=== PATIENT | female | born 2000 | race Two or more races ===

== ENCOUNTER 2023-12-24 16:06 | Emergency (ER) | payer OTHER ==
[2023-12-24 16:30] LABS: BASOPHILS # (AUTO) 0.1 10^3/uL (0.0-0.1); BASOPHILS % (AUTO) 0.7 %; EOSINOPHILS # (AUTO) 0.1 10^3/uL (0.0-0.7); EOSINOPHILS % (AUTO) 0.5 %; HCT - HEMATOCRIT 42.1 % (37.0-47.0); HGB - HEMOGLOBIN 13.5 g/dL (12.0-16.0); LYMPHOCYTES # (AUTO) 1.3 10^3/uL (1.5-3.5); LYMPHOCYTES % (AUTO) 14.5 %; MEAN CORPUSCULAR HGB CONC 32.1 g/dL (32.0-36.0); MEAN CORPUSCULAR VOLUME 90.5 fL (81.0-99.0); MEAN PLATELET VOLUME 10.8 fL (7.9-10.8); MONOCYTES # (AUTO) 0.6 10^3/uL (0.0-1.0); MONOCYTES % (AUTO) 6.1 %; NEUTROPHILS # (AUTO) 7.2 10^3/uL (1.5-6.6); NEUTROPHILS % (AUTO) 77.9 %; PLT - PLATELET COUNT 285 10^3/uL (130-450); RED BLOOD COUNT 4.65 10^6/uL (4.20-5.40); WHITE BLOOD COUNT 9.2 x10^3/uL (4.8-10.8)
[2023-12-24 16:44] LABS: ALBUMIN 4.9 g/dL (3.2-5.5); ALBUMIN/GLOBULIN RATIO 1.4 (1.0-2.2); BILIRUBIN,TOTAL 0.6 mg/dL (0.2-1.0); CALCIUM 9.8 mg/dL (8.5-10.3); CREATININE 0.7 mg/dL (0.6-1.3); POTASSIUM 3.4 mmol/L (3.5-4.5); TOTAL PROTEIN 8.4 g/dL (6.4-8.9)
[2023-12-24 16:54] LABS: BILIRUBIN,URINE SMALL (NEGATIVE); GLUCOSE, URINE (UA) NEGATIVE (NEGATIVE); KETONES,URINE (UA) >=80 mg/dL (NEGATIVE); LEUKOCYTE ESTERASE, URINE NEGATIVE (NEGATIVE); NITRITE,URINE NEGATIVE (NEGATIVE); OCCULT BLOOD,URINE NEGATIVE (NEGATIVE); PROTEIN,URINE TRACE mg/dL (NEGATIVE); UROBILINOGEN,URINE 0.2 (NORMAL) E.U./dL (NORMAL)
[2023-12-24 16:56] LABS: CLARITY,URINE CLEAR (CLEAR); HCG UR QUAL NEGATIVE
--- NOTE | 2023-12-24 17:32 | ED Physician Documentation ---
History of Present Illness - Stated complaint Stated Complaint: VOMITING - Chief complaint Chief Complaint: Abd Pain - History obtained from History obtained from: Patient - Additonal information Additional information: 23-year-old female presented with nausea and vomiting since yesterday. The patient states she has a history of hyperemesis gravidarum during her which she delivered 8 months ago, and has occasional bouts of nausea vomiting since then. She had multiple episodes of nausea and vomiting, nonbloody, nonbilious, and a was not able to tolerate any p.o. thus came into the ER today. She mainly was concerned that she did not have something that she may accidentally transmit to her 8-month-old baby. Patient states she has had a lot of stress recently, has not been getting much rest within it young child at home, and does not eat or drink on a regular basis and sometimes gets behind on p.o. intake. She is also noting low back pain though this is not a new issue, she states she has had low back pain since she had her epidural during normal spontaneous vaginal delivery 8 months ago. She has had fairly consistent pain since then, just right of midline, nonradiating, no saddle anesthesia or lower extremity weakness or numbness. She has not followed up with her PCP for this issue and has not taken any medication for it. She is not here for the back pain today, and is here mainly for the nausea and vomiting. She states she has not had a fever, denies any chest pain, no cough or URI symptoms, no sore throat,No abdominal pain, no diarrhea, no dysuria urgency or frequency, no vaginal discharge. Patient declines IV today, declines any medications. Review of Systems Constitutional: reports: Reviewed and negative Eyes: reports: Reviewed and negative Ears: reports: Reviewed and negative Nose: reports: Reviewed and negative Throat: reports: Reviewed and negative Cardiac: reports: Reviewed and negative Respiratory: reports: Reviewed and negative GI: reports: Nausea, Vomiting. 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 : None HEENT: None Psych: None Musculoskeletal: Chronic back pain Derm: None - Past Surgical History Past Surgical History: No - Present Medications Home Medications: Ambulatory Orders Medication Instructions Recorded Confirmed Ondansetron Odt [Zofran] 4 mg TL Q6H PRN #10 tablet 12/24/23 - Allergies Allergies/Adverse Reactions: Allergies Allergy/AdvReac Type Severity Reaction Status Date / Time No Known Drug Allergies Allergy Verified 12/24/23 16:08 - Social History Does the pt smoke?: No Smoking Status: Never smoker Does the pt drink ETOH?: No Does the pt have substance abuse?: Yes Substance Use and Type: Marijuana - Immunizations Immunizations are current?: Yes - POLST Patient has POLST: No PD ED PE NORMAL - Vitals Vital signs reviewed: Yes - General General: Alert and oriented X 3, No acute distress, Well developed/nourished - HEENT HEENT: Atraumatic, Moist mucous membranes, Pharynx benign - Neck Neck: Supple, no meningeal sign, No adenopathy - Cardiac Cardiac: RRR, No murmur - Respiratory Respiratory: No respiratory distress - Abdomen Abdomen: Normal bowel sounds, Soft, Non tender, Non distended - Back Back: No CVA TTP, No spinal TTP, Other (Med at right of midline lumbosacral tenderness) - Derm Derm: Normal color, No rash - Neuro Neuro: Alert and oriented X 3 Eye Opening: Spontaneous Motor: Obeys Commands Verbal: Oriented GCS Score: 15 - Psych Psych: Normal mood, Normal affect Results - Vitals Vitals: Vital Signs - 24 hr 12/24/23 12/24/23 16:10 16:36 Temperature 36.4 C L Heart Rate 84 78 Respiratory 18 20 Rate Blood Pressure 112/66 105/40 L O2 Saturation 100 100 Oxygen O2 Source Room air - Labs Labs: Laboratory Tests 12/24/23 12/24/23 12/24/23 16:25 16:25 16:45 WBC 9.2 RBC 4.65 Hgb 13.5 Hct 42.1 MCV 90.5 MCH 29.0 MCHC 32.1 RDW 13.0 Plt Count 285 MPV 10.8 Neut # (Auto) 7.2 H Lymph # (Auto) 1.3 L Mccormick # (Auto) 0.6 Eos # (Auto) 0.1 Baso # (Auto) 0.1 Absolute Nucleated RBC 0.00 Nucleated RBC % 0.0 Sodium 138 Potassium 3.4 L Chloride 104 Carbon Dioxide 23 Anion Gap 11.0 BUN 12 Creatinine 0.7 Estimated GFR (MDRD) 106 Glucose 79 Calcium 9.8 Total Bilirubin 0.6 AST 15 ALT 11 Alkaline Phosphatase 80 Total Protein 8.4 Albumin 4.9 Globulin 3.5 Albumin/Globulin Ratio 1.4 Lipase 35 Urine Color DARK YELLOW Urine Clarity CLEAR Urine pH 6.0 Ur Specific Mobile >=1.030 H Urine Protein TRACE Urine Glucose (UA) NEGATIVE Urine Ketones >=80 H Urine Occult Blood NEGATIVE Urine Nitrite NEGATIVE Urine Bilirubin SMALL H Urine Urobilinogen 0.2 (NORMAL) Ur Leukocyte Esterase NEGATIVE Ur Microscopic Review NOT INDICATED Urine Culture Comments NOT INDICATED Urine HCG, Qual NEGATIVE PD Medical Decision Making - ED course Complexity details: reviewed results, re-evaluated patient, considered differential, d/w patient ED course: 23-year-old female presented with nausea and vomiting since yesterday as described in HPI. She is well-appearing here physical exam, afebrile nontoxic and in no acute distress. Patient declined IV, IV fluids, or or antiemetics at this time and sounds as though she essentially wanted to make sure she did not have anything that could be passed along to her baby. We did obtain lab work which showed a reassuring CBC and CMP, urinalysis negative for signs of infection, she is not . I discussed with patient that these lab tests do not necessarily exclude any sort of infectious cause and I did offer a viral panel however she declined, she has not had any URI type symptoms and I think reasonable to decline. I discussed with patient that it may be secondary to a viral illness or something she ate, and recommended supportive measures for now, offered Zofran, recommended clear liquid diet and discussed return precautions. I low suspicion for acute surgical abdomen as patient has no abdominal pain. Patient does have back pain though this is not new for the patient she has been dealing with this for about a month since having an epidural in that area. Her exam in this regard is reassuring, she has no signs of cauda equina and I di scussed supportive measures with patient, recommended considering physical therapy and follow-up outpatient with PCP if no improvement, consider outpatient MRI. Again patient declined any IV fluids, IV antibiotics, oral antibiotics and feels well enough to go home, tolerating p.o. fluids here. Discharged home in stable condition. Departure - Departure Disposition: Home, Self Care Clinical Impression: Vomiting Qualifiers: Vomiting type: unspecified Nausea presence: with nausea Qualified Code(s): R11.2 - Nausea with vomiting, unspecified Low back pain Qualifiers: Chronicity: acute Back pain laterality: right Sciatica presence: without sciatica Qualified Code(s): M54.50 - Low back pain, unspecified Condition: Good Instructions: ED Nausea Vomiting Prescriptions: Ondansetron Odt [Zofran] 4 mg TL Q6H PRN #10 tablet PRN Reason: Nausea / Vomiting Comments: Rossana, it is not clear what caused your nausea and vomiting. It may be something you ate, or a viral illness that has upset the GI tract. Typically these illnesses are self-limiting and go away in 1 to 2 days. Your labs today were fairly reassuring, you had a stable CBC, and liver and kidney function, and your urine test did not show signs of infection or . If you need Zofran, I have sent a prescription to [facility]. I recommend that you stick to a clear liquid diet and you can take Zofran as needed. If you develop a fever or worsening symptoms, consider reevaluation. For your back pain, I am sorry you have been dealing with this for 8 months. Consider trying online physical therapy exercises until you can get into outpatient physical therapy and follow- up with primary doctor. If the pain persist they may want to do an MRI. Forms: PCP List
[2023-12-24 18:05] VITALS: BP 110/60; O2SAT 100
== END 2023-12-24 17:59 | disposition home or self-care (01) ==
LOC: ED 16:06
DX: R11.2 Nausea with vomiting, unspecified (principal); M54.50 Low back pain, unspecified
CPT/HCPCS: 36415; 80053; 81001; 81003; 81025; 83690; 85025; 87086; 99283; 99284